=== PATIENT | male | born 1935 | race Asian ===

== ENCOUNTER 2021-04-02 12:28 | Inpatient (IN) | payer MEDICARE, OTHER ==
[~2021-04-02] VITALS: Ht 167.6 cm; Wt 71.0 kg
[2021-04-02 15:19] LABS: Basophils # (auto) 0 10 ^3/uL (0-0.2); Basophils % (auto) 0.3 % (0.0-2.0); Eosinophils # (auto) 0 10 ^3/uL (0-0.8); Hemoglobin 10.8 g/dL (13.5-17.5); Monocytes # (auto) 0.3 10 ^3/uL (0-1.3)
[2021-04-02 15:20] LABS: Hematocrit 34.5 % (41.0-53.0); Lymphocytes # (auto) 0.8 10 ^3/uL (0.4-5.4); Lymphocytes % (auto) 6.2 % (10.0-50.0); Mean Corpuscular Hemoglobin 22.1 pg (28.0-32.0); Mean Corpuscular Hgb Conc. 31.2 g/dL (32.0-36.0); Mean Corpuscular Volume 70.9 fL (80.0-100.0); Monocytes % (auto) 2.6 % (0.0-12.0); Neutrophils # (auto) 11.2 10 ^3/uL (1.6-8.6); Neutrophils % (auto) 90.9 % (37.0-80.0); Platelet Count (auto) 289 10^3/uL (140-450); Red Blood Cells 4.87 10^6/uL (4.5-5.90); Red Cell Distribution Width 19.2 % (11.8-14.3); White Blood Cell 12.3 10^3/uL (4.4-10.8)
[2021-04-02 15:37] LABS: INR 1.02 (0.9-1.15); Partial Thromboplastin Time 28.1 sec (23.0-31.2)
[2021-04-02 15:38] LABS: Alanine Aminotransferase 25 U/L (16-61); Albumin 3.2 g/dL (3.4-5.0); Anion Gap 7 (5-15); Aspartate Aminotransferase 10 U/L (15-37); BUN/Creatinine Ratio 16.1; Blood Urea Nitrogen 20 mg/dL (7-18); Calcium 8.3 mg/dL (8.5-10.1); Carbon Dioxide 29 mmol/L (21-32); Chloride 104 mmol/L (98-107); GFR African American 71 mL/min; GFR Non-African American 59 mL/min; Glucose 155 mg/dL (74-106); Magnesium 2.3 mg/dL (1.6-2.6); Potassium 4.7 mmol/L (3.5-5.1); Sodium 140 mmol/L (136-145)
[2021-04-02 15:42] LABS: Alkaline Phosphatase 63 U/L (45-117); Bilirubin, Total 1.1 mg/dL (0.2-1.0); Total Protein 6.6 g/dL (6.4-8.2)
[2021-04-02] MEDS ORDERED: HYDROcodone-ACET 5/325MG TAB PO PRN (19:00)
[2021-04-02] MEDS ORDERED: NITROGLYCERIN 0.4 MG SL TAB SL PRN (19:00)
[2021-04-02] MEDS ORDERED: ACETAMINOPHEN 325 MG TAB PO PRN (19:00)
[2021-04-02] MEDS ORDERED: MORPHINE SULF INJ 2 MG/ML SYRINGE 1ML IV PRN (19:00)
[2021-04-02] MEDS ORDERED: CLON0.1T PO (20:57)
[2021-04-02] MEDS ORDERED: CARV6.2551 PO (20:57)
[2021-04-02] MEDS ORDERED: CHLO25TA2 PO (20:57)
[2021-04-02] MEDS ORDERED: LOSA25TA38 PO (20:57)
[2021-04-02] MEDS ORDERED: PRED20TA2 PO (20:57)
[2021-04-02 22:00] VITALS: BP 156/78
[2021-04-02] MEDS: cefTRIAXone 1GM/50ML D5W 50 ML IV SCH (22:38)
[2021-04-02] MEDS: CARVEDILOL 3.125 MG TAB PO SCH (22:39)
[2021-04-02] MEDS: SOD CHL 0.45% 1,000 ML IV SCH (22:42)
[2021-04-03] VITALS (13 sets, daily range): BP systolic 116–185; BP diastolic 56–91
[2021-04-03] MEDS ORDERED: LOSA-69 PO (05:26)
[2021-04-03] MEDS: cefTRIAXone 1GM/50ML D5W 50 ML IV SCH ×2 (09:55→21:53)
[2021-04-03] MEDS: cloNIDine HCL 0.1 MG TAB PO SCH (09:56)
[2021-04-03] MEDS: CARVEDILOL 3.125 MG TAB PO SCH ×2 (09:56→21:53)
[2021-04-03] MEDS ORDERED: IOHEXOL 300 MG/ML 100ML BOTTLE IJ ONE (10:25)
[2021-04-03] MEDS: SOD CHL 0.45% 1,000 ML IV SCH (15:00)
[2021-04-04] VITALS (11 sets, daily range): BP systolic 122–155; BP diastolic 60–98
[2021-04-04] MEDS: SOD CHL 0.45% 1,000 ML IV SCH (00:05)
[2021-04-04] MEDS: cefTRIAXone 1GM/50ML D5W 50 ML IV SCH (09:32)
[2021-04-04] MEDS: cloNIDine HCL 0.1 MG TAB PO SCH (09:34)
[2021-04-04] MEDS: CARVEDILOL 3.125 MG TAB PO SCH ×2 (09:34→22:00)
[2021-04-05 05:15] VITALS: BP 137/74
[2021-04-05 06:16] LABS: Basophils # (auto) 0.1 10 ^3/uL (0-0.2); Basophils % (auto) 0.8 % (0.0-2.0); Eosinophils # (auto) 0.4 10 ^3/uL (0-0.8); Eosinophils % (auto) 4.4 % (0.0-7.0); Hematocrit 31.1 % (41.0-53.0); Lymphocytes # (auto) 1.2 10 ^3/uL (0.4-5.4); Lymphocytes % (auto) 14.7 % (10.0-50.0); Mean Corpuscular Hemoglobin 22.7 pg (28.0-32.0); Mean Corpuscular Hgb Conc. 32.2 g/dL (32.0-36.0); Mean Corpuscular Volume 70.5 fL (80.0-100.0); Monocytes # (auto) 0.6 10 ^3/uL (0-1.3); Monocytes % (auto) 7.9 % (0.0-12.0); Neutrophils # (auto) 5.8 10 ^3/uL (1.6-8.6); Neutrophils % (auto) 72.2 % (37.0-80.0); Platelet Count (auto) 267 10^3/uL (140-450); Red Blood Cells 4.41 10^6/uL (4.5-5.90); Red Cell Distribution Width 19.5 % (11.8-14.3); White Blood Cell 8.1 10^3/uL (4.4-10.8)
[2021-04-05 06:30] LABS: Potassium 3.9 mmol/L (3.5-5.1)
[2021-04-05 06:35] LABS: BUN/Creatinine Ratio 17.3; Calcium 7.8 mg/dL (8.5-10.1)
[2021-04-05] MEDS: SOD CHL 0.45% 1,000 ML IV SCH (06:56)
[2021-04-05 09:00] VITALS: BP 153/67
[2021-04-05] MEDS: cefTRIAXone 1GM/50ML D5W 50 ML IV SCH (09:12)
[2021-04-05] MEDS: CARVEDILOL 3.125 MG TAB PO SCH ×2 (09:13→22:00)
[2021-04-05] MEDS: cloNIDine HCL 0.1 MG TAB PO SCH (09:13)
[2021-04-05 13:00] VITALS: BP 133/63
[2021-04-05 22:15] VITALS: BP 129/74
[2021-04-06] MEDS: SOD CHL 0.45% 1,000 ML IV SCH (03:00)
[2021-04-06 05:16] VITALS: BP 127/72
[2021-04-06 09:00] VITALS: BP 148/69
[2021-04-06] MEDS: CARVEDILOL 3.125 MG TAB PO SCH (10:00)
[2021-04-06] MEDS: cefTRIAXone 1GM/50ML D5W 50 ML IV SCH (10:42)
[2021-04-06] MEDS: cloNIDine HCL 0.1 MG TAB PO SCH (10:43)
[2021-04-06 13:00] VITALS: BP 143/77
== END 2021-04-06 15:20 | disposition home or self-care (01) | DRG 312 ==
LOC: ER 12:28 → EDBD 12:28 → TELE 19:12 → TELE-WESTW 19:56
PROVIDERS: ADMIT Specialist; ATTEND Specialist
DX: R55 Syncope and collapse (principal); S20.212A Contusion of left front wall of thorax, initial encounter; Z20.822 Contact with and (suspected) exposure to COVID-19; I71.2 Thoracic aortic aneurysm, without rupture; S73.101A Unspecified sprain of right hip, initial encounter; I10 Essential (primary) hypertension; E78.5 Hyperlipidemia, unspecified; G93.89 Other specified disorders of brain; W18.39XA Other fall on same level, initial encounter; Y93.89 Activity, other specified; Y92.89 Other specified places as the place of occurrence of the external cause; Y99.8 Other external cause status; D72.829 Elevated white blood cell count, unspecified
CPT/HCPCS: 36415; 70450; 70470; 70551; 71101; 71250; 72125; 72192; 80048; 80053; 83735; 84484; 85025; 85610; 85730; 87040; 87426; 93005; 96365; G0378; J0696